=== PATIENT | male | born 1960 | race Caucasian/White ===

== ENCOUNTER 2017-10-09 16:27 | Emergency (ER) | payer MEDICAID, SELFPAY ==
[2017-10-09 16:28] VITALS: BP 130/82; PULSE 87; RESP 16; TEMP 36.5; O2SAT 93; BMI 38.0
--- NOTE | 2017-10-09 16:45 | EKG12_ITS ---
Test Reason : WEAKNESS Blood Pressure : / mmHG Vent. Rate : 079 BPM Atrial Rate : 079 BPM P-R Int : 150 ms QRS Dur : 084 ms QT Int : 376 ms P-R-T Axes : 058 -18 060 degrees QTc Int : 431 ms Normal sinus rhythm Normal ECG Confirmed by WENDY PAL MD ([id number]), map editor MAYRA MEJIA ([id number] on 10/11/2017 3:04:03 PM Referred By: KIRK Confirmed By:WENDY PAL MD
[2017-10-09] MEDS: 0.9% Normal Saline 1,000 ML 1000 ML IV (17:13)
[2017-10-09 17:36] LABS: Absolute Neutrophil Count 4.8 X10^3/uL (2.0-7.7); Basophil# 0.01 X10^3/uL; Basophil% 0.1 % (0-1); Eosinophil# 0.14 X10^3/uL; Eosinophils% 1.8 % (0-5); Hematocrit 50.1 % (40-54); Hemoglobin 16.7 g/dl (13.0-16.5); Lymphocyte % 27.4 % (19-41); Mean Corp Hgb Conc 33.3 g/gl (32-36); Mean Corpuscular Hgb 31.5 pg (27.0-32.0); Mean Corpuscular Volume 94.5 fL (80-94); Mean Platelet Vol. 9.3 fl (6.2-12.0); Monocyte# 0.63 X10^3/uL; Monocyte% 8.2 % (0-10); Neutrophil # 4.76 X10^3/uL (2.7-7.7); Neutrophil % 62.2 % (47-70); Platelet Count 211 K/mm3 (150-450); RBC Distribution Width CV 13.6 % (11.6-14.6); RBC Distribution Width SD 46.8 fl (35.1-43.9); White Blood Count 7.7 K/mm3 (4.4-11.0)
[2017-10-09 17:37] LABS: POSITIVE COUNT NO; POSITIVE DIFFERENTIAL NO; POSITIVE MORPHOLOGY NO
[2017-10-09 17:38] LABS: Anion Gap 6 (5-15); BUN 12 mg/dL (7-18); BUN/Creat Ratio 15.6 RATIO (10-20); Calcium,Total 8.8 mg/dL (8.5-10.1); Chloride 108 mmol/L (98-107); Creatinine, Serum 0.77 mg/dL (0.70-1.30); EST Glomerular Filtration Rate 112 mL/min (>60); Est Glom Filt Rate - Afr Amer 135 mL/min (>60); Estimated Creatinine Clearance 90.76 ml/min; Glucose 97 mg/dL (74-106); Sodium Level 139 mmol/L (136-145)
--- NOTE | 2017-10-09 17:59 | ED.VISSUMM ---
- ER Visit Summary Date of Service: 10/09/17 Chief Complaint: Dizzy, weak, fatigued History of Present Illness: The patient is a 57 M who presents with all the above symptoms. Is been ongoing for 5 days. He states when the weather gets cold he feels this way. He states when the weather was warm he felt better but now that it is cold again he feels dizzy and weak. He has some mild stomach pain. Denies syncope. His weakness is diffuse. No lateralizing weakness or numbness. Denies any speech issues. He has a history of peripheral vascular disease. He also admits that he drinks a lot of sodas and sugary drinks but no water Physical Examination: Vital signs reviewed. HEENT exam unremarkable. Heart is regular rate and rhythm without murmurs. Lungs are clear to auscultation. Abdomen is soft and nontender. Extremities reveal no edema. Skin exam normal. Neurologic exam normal. Test Results: EKG is normal sinus rhythm with a rate of 79. No ST changes. Laboratory studies are all normal Emergency Department Course and Treatment: She was hydrated with IV fluids. He had a bag of candy at the bedside he was eating. I told him that not drinking water along with eating a lot of candy would likely cause his symptoms. He will try to drink more water at home. There is no signs of any strokelike symptoms. I do not feel a CAT scan of the head is necessary. He will be discharged to follow-up with his PCP Treatment Plan: [] Disposition: Discharge Impression: Weakness This note was generated with [employer] dictation software. It may contain incorrect words, spelling, and punctuation that were not noted in review of the chart prior to signing ED Disposition - Plan for ED Patient: Chief Complaint: Weakness Referrals: Adam Marroquin MD [Primary Care Provider] -
--- NOTE | 2017-10-09 18:00 | ED.DEP ---
ED Disposition - Plan for ED Patient: Disposition: Home or Assisted Living Chief Complaint: Weakness Instructions: ED Weakness [facility] Referrals: Adam Marroquin MD [Primary Care Provider] -
== END 2017-10-09 18:17 | disposition home or self-care (01) ==
PROVIDERS: Emergency Provider Emergency Medicine; Family Provider Family Medicine; PCP Family Medicine
DX: R53.1 Weakness (principal); R42 Dizziness and giddiness; R53.83 Other fatigue; I25.10 Atherosclerotic heart disease of native coronary artery without angina pectoris; Z79.82 Long term (current) use of aspirin; Z79.899 Other long term (current) drug therapy
CPT/HCPCS: 80048; 84484; 85025; 93005; 96360; 99283; J7030; A4216